=== PATIENT | female | born 1950 | race Caucasian/White ===

== ENCOUNTER 2017-07-09 13:31 | Observation (INO) | payer OTHER ==
[~2017-07-09] VITALS: Ht 149.9 cm; Wt 66.0 kg
[2017-07-09] VITALS (9 sets, daily range): BP systolic 132–178; BP diastolic 79–96; PULSE 72–100; RESP 18–20; TEMP 97.8–99.2; O2SAT 96–98
[~2017-07-09 13:31] MED LIST: ASPI81TA82 PO; BIOT5000 PO; CRANCAP9; FERR140T PO; PHEN-426 PO; TAB-TAB PO; VITA-13 PO; VITA10002 PO; ZOFR4TAB3 PO
--- NOTE | 2017-07-09 13:37 | PD ---
Physical Exam Date Seen by Provider: Jul 09, 2017 Time Seen by Provider: 13:34 Narrative 67 YOWF C/O IRREG HEAT BEAT. LAST NIGHT ASSOC SWEATING AND CP/BACK PAIN LASTING FOR 6-7 HRS. H/O IRREG RYTHM. NOW FEELING BETTER. SENT BY PRIMARY FOR EVAL. VS REVIEWED PT WAITING FOR BED PLACEMENT. Data Data Last Documented VS Vital Signs Date Time Temp Pulse Resp B/P Pulse Ox O2 Delivery O2 Flow Rate FiO2 07/09/17 13:32 99.2 100 20 171/96 98 Room Air MDM Supervised Visit with ALIZE: No Condition: Stable Jose Guadalupe Beckett Jul 09, 2017 13:37
[2017-07-09] MEDS ORDERED: SODIUM CHLORIDE 0.9% FLUSH 10 ML FLUSH IVF PRN (13:45)
[2017-07-09 14:13] LABS: AUTOMATED NEUTROPHIL # 5.4 TH/MM3 (1.8-7.7); BASOPHIL # 0.1 TH/MM3 (0-0.2); BASOPHIL % 1.4 % (0.0-2.0); EOSINOPHIL # 0.2 TH/MM3 (0-0.4); EOSINOPHIL % 1.8 % (0.0-4.0); HEMATOCRIT 41.1 % (35.0-46.0); HEMO FLAGS DIFF FINAL; LYMPH % 30.5 % (9.0-44.0); LYMPHOCYTE # 2.8 TH/MM3 (1.0-4.8); MEAN CELL VOLUME 83.4 FL (80.0-100.0); MEAN CORPUSCULAR HEMOGLOBIN 26.8 PG (27.0-34.0); MEAN CORPUSCULAR HGB CONC 32.1 % (32.0-36.0); MONO % 7.8 % (0.0-8.0); NEUT % 58.5 % (16.0-70.0); PLATELET COUNT 375 TH/MM3 (150-450); RED BLOOD COUNT 4.92 MIL/MM3 (4.00-5.30); WHITE BLOOD COUNT 9.2 TH/MM3 (4.0-11.0)
[2017-07-09 14:23] LABS: APTT (PATIENT) 27.3 SEC (24.3-30.1); INTERNATIONAL NORMALIZED RATIO 0.9 RATIO; PROTHROMBIN TIME - PATIENT 10.4 SEC (9.8-11.6)
[2017-07-09] MEDS ORDERED: VITA100064 PO (14:32)
[2017-07-09] MEDS ORDERED: ASPI81CH CHEW (14:32)
[2017-07-09] MEDS ORDERED: VITA10002 PO (14:32)
[2017-07-09] MEDS ORDERED: PHEN0.4T PO (14:32)
[2017-07-09] MEDS ORDERED: MULT-65 PO (14:32)
[2017-07-09] MEDS ORDERED: FERR325T8 PO (14:32)
[2017-07-09] MEDS ORDERED: BIOTCAP PO (14:32)
[2017-07-09] MEDS ORDERED: CRANCAP2 PO (14:32)
[2017-07-09 14:34] LABS: ANION GAP 9 MEQ/L (5-15); BICARBONATE 26.9 MEQ/L (21.0-32.0); BLOOD UREA NITROGEN 16 MG/DL (7-18); CHLORIDE 103 MEQ/L (98-107); GLOMERULAR FILTRATION RATE 68 ML/MIN (>89); MAGNESIUM 2.4 MG/DL (1.5-2.5); POTASSIUM 3.9 MEQ/L (3.5-5.1); SODIUM (NA) 139 MEQ/L (136-145)
[2017-07-09 14:36] LABS: CREATINE KINASE 167 U/L (26-192)
[2017-07-09 14:48] LABS: CKMB 3.3 NG/ML (0.5-3.6)
--- NOTE | 2017-07-09 15:03 | RADRPT ---
EXAM DATE/TIME: 07/09/2017 14:15 [facility] COMPARISON: CT ABDOMEN W CONTRAST, July 05, 2016, 14:46. INDICATIONS : Chest pain since last night. MEDICAL HISTORY : Renal calculi. Cardiovascular disease SURGICAL HISTORY : section. ENCOUNTER: Initial ACUITY: 2 days PAIN SCORE: 6/10 LOCATION: Bilateral chest FINDINGS: PA and lateral views of the chest demonstrate the lungs to be symmetrically aerated without evidence of mass, infiltrate or effusion. The cardiomediastinal contours are unremarkable. Large hiatal daija ia is noted. Osseous structures are intact. CONCLUSION: No acute disease. Alan Valentine MD FACR on July 09, 2017 at 14:58 Board Certified Radiologist. This report was verified electronically.
--- NOTE | 2017-07-09 15:03 | PD ---
HPI Chief Complaint: Cardiac Complaint Time Seen by Provider: 14:52 Travel History International Travel<30 days: No Contact w/Intl Traveler<30days: No Traveled to known affect area: No History of Present Illness HPI This is a 67-year-old female who presents with complaints of chest pain and diaphoresis last night. The patient states that she has had episodes where the top of her heart in the bottom of her heart are not in sink. She states usually she is able to take an aspirin and this emerged everything back to normal rhythm. She states that she's had a Holter monitor for 30 days and never shows any arrhythmia. She denies any chest pressure or pain now. She states that at 7:00 she felt her heart convert. She states that this was much worse in any previous episodes she's had. She states she had a normal heart catheter 13 years ago[address] 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 PFSH Past Medical History Hx Anticoagulant Therapy: Yes Cardiovascular Problems: Yes Diminished Hearing: No Kidney Stones: Yes Tetanus Vaccination: > 5 Years Influenza Vaccination: Yes ?: Not Menopausal: Yes Past Surgical History Section: Yes Social History Alcohol Use: No Tobacco Use: No Substance Use: No Allergies-Medications (Allergen,Severity, Reaction): Coded Allergies: Sulfa (Sulfonamide Antibiotics) (Unverified Allergy, Severe, Hives, ) tetanus immune globulin (Verified Allergy, Severe, Shortness of Breath, ) Reported Meds & Prescriptions Reported Meds & Active Scripts Active Reported Multi-Vitamin Daily (Multiple Vitamin) 1 Tab Tab 1 Tab PO DAILY Ferrous Sulfate 325 Mg (65 Mg Iron) Tablet 140 Mg PO BIDPC Vitamin B-12 (Cyanocobalamin) 1,000 Mcg Tab 1,000 Mcg PO DAILY Cranberry Urinary Comfort (Vitamins C & E) 1 Cap 1 Cap PO DAILY Vitamin D3 (Cholecalciferol) 1,000 Unit Tab 1,000 Units PO DAILY Biotin 5 Mg Cap 5 Mg PO Aspirin 81 Mg Chew 81 Mg CHEW DAILY Review of Systems Except as stated in HPI: all other systems reviewed are Neg Eyes: No: Blurred Vision, Photophobia HENT: No: Headaches, Lightheadedness Cardiovascular: Positive: Chest Pain or Discomfort, No: Palpitations Respiratory: Positive: Shortness of Breath (earlier), No: Cough Gastrointestinal: No: Nausea, Vomiting, Abdominal Pain Genitourinary: No: Frequency, Dysuria Neurologic: No: Weakness, Dizziness, Headache Physical Exam Narrative GENERAL: Well-nourished, well-developed patient, in no acute respiratory distress. SKIN: Focused skin assessment warm/dry. HEAD: Normocephalic/atraumatic. EYES: No scleral icterus. No injection or drainage. NECK: Supple, trachea midline. No JVD or lymphadenopathy. CARDIOVASCULAR: Regular rate and rhythm without murmurs, gallops, or rubs. RESPIRATORY: Breath sounds equal bilaterally. No accessory muscle use. GASTROINTESTINAL: Abdomen soft, non-tender, nondistended. MUSCULOSKELETAL: No cyanosis, or edema. NEUROLOGICAL: Awake and alert. Cranial nerves II through XII intact. Motor grossly within normal limits. Five out of 5 muscle strength in all muscle groups. Normal speech. Data Data Last Documented VS Vital Signs Date Time Temp Pulse Resp B/P Pulse Ox O2 Delivery O2 Flow Rate FiO2 07/09/17 14:27 90 20 178/91 97 Room Air 07/09/17 13:32 99.2 Orders Electrocardiogram (07/09/17 13:38) Basic Metabolic Panel (Bmp) (07/09/17 13:38) Ckmb (Isoenzyme) Profile (07/09/17 13:38) Complete Blood Count With Diff (07/09/17 13:38) Magnesium (Mg) (07/09/17 13:38) Prothrombin Time / Inr (Pt) (07/09/17 13:38) Act Partial Throm Time (Ptt) (07/09/17 13:38) Troponin I (07/09/17 13:38) Ecg Monitoring (07/09/17 13:38) Iv Access Insert/Monitor (07/09/17 13:38) Oximetry (07/09/17 13:38) Oxygen Administration (07/09/17 13:38) Sodium Chloride 0.9% Flush (Ns Flush) (07/09/17 13:45) Chest, Pa & Lat (07/09/17 13:38) CKMB (07/09/17 13:58) CKMB% (07/09/17 13:58) Admit Order (Ed Use Only) (07/09/17 15:26) Labs Laboratory Tests Test 07/09/17 13:58 White Blood Count 9.2 TH/MM3 Red Blood Count 4.92 MIL/MM3 Hemoglobin 13.2 GM/DL Hematocrit 41.1 % Mean Corpuscular Volume 83.4 FL Mean Corpuscular Hemoglobin 26.8 PG Mean Corpuscular Hemoglobin 32.1 % Concent Red Cell Distribution Width 17.0 % Platelet Count 375 TH/MM3 Mean Platelet Volume 7.8 FL Neutrophils (%) (Auto) 58.5 % Lymphocytes (%) (Auto) 30.5 % Monocytes (%) (Auto) 7.8 % Eosinophils (%) (Auto) 1.8 % Basophils (%) (Auto) 1.4 % Neutrophils # (Auto) 5.4 TH/MM3 Lymphocytes # (Auto) 2.8 TH/MM3 Monocytes # (Auto) 0.7 TH/MM3 Eosinophils # (Auto) 0.2 TH/MM3 Basophils # (Auto) 0.1 TH/MM3 CBC Comment DIFF FINAL Differential Comment Prothrombin Time 10.4 SEC Prothromb Time International 0.9 RATIO Ratio Activated Partial 27.3 SEC Thromboplast Time Sodium Level 139 MEQ/L Potassium Level 3.9 MEQ/L Chloride Level 103 MEQ/L Carbon Dioxide Level 26.9 MEQ/L Anion Gap 9 MEQ/L Blood Urea Nitrogen 16 MG/DL Creatinine 0.83 MG/DL Estimat Glomerular Filtration 68 ML/MIN Rate Random Glucose 89 MG/DL Calcium Level 9.0 MG/DL Magnesium Level 2.4 MG/DL Total Creatine Kinase 167 U/L Creatine Kinase MB 3.3 NG/ML Troponin I LESS THAN 0.02 NG/ML MDM Medical Decision Making Medical Screen Exam Complete: Yes Emergency Medical Condition: Yes Differential Diagnosis ACS versus paroxysmal A. fib versus palpitations versus metabolic derangement Narrative Course This is a 67-year-old female who presents with complaints of chest pain yesterday. The patient states she had chest pain, diaphoresis and palpitations. She states she's had this in the past. She states that normally she can chew aspirin or burp and it goes away. She reports this one was more severe with the severe diaphoresis. There are no acute changes on EKG. Cardiac enzymes are within normal limits. Given her history, patient will be admitted to the chest pain center for rule out protocol. She is amenable to this plan. Case was discussed with HEAVENLY Harris working in the chest pain center. Diagnosis Primary Impression: Chest pain Admitting Information Admitting Physician Requests: Rangel Bragg C. MD Jul 09, 2017 15:03
[2017-07-09] MEDS ORDERED: ACETAMINOPHEN 500 MG CPLT PO PRN (16:15)
[2017-07-09] MEDS ORDERED: ONDANSETRON HCL 4 MG/2 ML VIAL IV PRN (16:15)
[2017-07-09] MEDS ORDERED: ACETAMINOPHEN/HYDROcodone 325 MG/7.5 MG TAB PO PRN (16:15)
[2017-07-09] MEDS ORDERED: ALPRAZolam 0.25 MG TAB PO PRN (16:15)
[2017-07-09] MEDS ORDERED: SODIUM CHLORIDE 0.9% FLUSH 5 ML FLUSH IVF PRN (16:15)
--- NOTE | 2017-07-09 16:58 | HHI.HP ---
[facility] Primary Care Physician Ant Cisse MD Chief Complaint CHEST PAIN History of Present Illness She states that for the last 35 years she has had intermittent events that she describes as the top chamber of her heart and the bottom chamber of her heart beating irregular. It also will fill rapid. She states that she will usually either bare down her cough really hard and will convert. She's had evaluations for this in the past. She states that a couple years ago she had a 30 day Holter monitor which did not reveal any arrhythmias. She had an abnormal stress test about 13 years ago that led to a cardiac catheterization revealing 10-20% disease of the LAD but otherwise normal coronaries. She has had other stress tests since then that had been normal. A couple evenings ago a same episode occurred around 12:30. She states they usually wake her up. However this time she had a pressure in her chest with it and she was not able to convert the irregularity. It lasted for 6 hours. She took an aspirin and it eventually went away. She tried to get an appointment with her surgeon chief however the office stated she needed a referral. She called her primary care physician who told her to go to the ED. She has not had recurrent chest discomfort or palpitations. Denies recent illness. Denies fevers or chills. Review of Systems General: Patient denies fevers, chills recent, and recent travel HEENT: Patient denies headache, sore throat, difficulty swallowing. Cardiovascular: Has the chest discomfort as mentioned above. She had a sensation of her heart beating rapid and irregular and states that has been intermittent for 35 years. The difference were the chest pressure and that she could not convert the palpitation. No syncope. She was diaphoretic. Respiratory: Denies shortness of breath or inspirational chest discomfort. Denies coughing wheezing or hemoptysis. GI: Patient denies nausea, vomiting, diarrhea, abdominal pain, bloody stools. Musculoskeletal: Patient denies joint pain or edema. Denies calf pain or edema. Neurovascular: Patient denies numbness, tingling, weakness in extremities. Denies headache. Endocrine: Denies polyuria and polydipsia. Hematologic: Denies easy bruising. Skin: Denies rash or itching. Past Family Social History Allergies: Coded Allergies: Sulfa (Sulfonamide Antibiotics) (Unverified Allergy, Severe, Hives, ) tetanus immune globulin (Verified Allergy, Severe, Shortness of Breath, ) Past Medical History Denies hypertension, hyperlipidemia, diabetes, and CAD. Past Surgical History Cardiac catheterization without intervention. Tonsillectomy, rhinoplasty, C- section 2, and D&C. Reported Medications Reported Meds & Active Scripts Active Reported Multi-Vitamin Daily (Multiple Vitamin) 1 Tab Tab 1 Tab PO DAILY Ferrous Sulfate 325 Mg (65 Mg Iron) Tablet 140 Mg PO BIDPC Vitamin B-12 (Cyanocobalamin) 1,000 Mcg Tab 1,000 Mcg PO DAILY Cranberry Urinary Comfort (Vitamins C & E) 1 Cap 1 Cap PO DAILY Vitamin D3 (Cholecalciferol) 1,000 Unit Tab 1,000 Units PO DAILY Biotin 5 Mg Cap 5 Mg PO Aspirin 81 Mg Chew 81 Mg CHEW DAILY Active Ordered Medications Current Medications Medications (Trade) Dose Ordered Sig/Toribio Route Start Time Stop Time Status Last Admin (NS Flush) 2 ml UNSCH PRN IVF 07/09/17 16:15 (NS Flush) 2 ml BID IVF 07/09/17 21:00 (Tylenol) 500 mg Q4H PRN PO 07/09/17 16:15 ([place] 7.5-325 Mg) 1 tab Q4H PRN PO 07/09/17 16:15 (Zofran Inj) 4 mg Q6H PRN IV 07/09/17 16:15 (Xanax) 0.25 mg Q8H PRN PO 07/09/17 16:15 Family History Denies family history of CAD. Social History Patient essentially has been a nonsmoker. She smoked briefly in college. Has occasional beer. Denies illicit drugs. Physical Exam Vital Signs Vital Signs Date Time Temp Pulse Resp B/P Pulse Ox O2 Delivery O2 Flow Rate FiO2 07/09/17 14:27 90 20 178/91 97 Room Air 07/09/17 14:23 Room Air 07/09/17 14:23 98 Room Air 07/09/17 13:32 99.2 100 20 171/96 98 Room Air Physical Exam GENERAL: This is a well-nourished, well-developed patient, in no apparent distress. Patient speaks in clear complete sentences. Patient is pleasant. HEENT: Head is atraumatic and normocephalic. Neck is supple without lymphadenopathy and trachea is midline. No JVD or carotid bruits. CARDIOVASCULAR: Regular rate and rhythm without murmurs, gallops, or rubs. RESPIRATORY: Clear to auscultation. Breath sounds equal bilaterally. No wheezes , rales, or rhonchi. Chest wall is nontender. No use of accessory muscles. GASTROINTESTINAL: Abdomen is nontender, nondistended. Abdomen soft. No obvious pulsatile mass or bruit. No CVA tenderness. Strong femoral pulses bilaterally. Normal bowel sounds in all quadrants. MUSCULOSKELETAL: Patient is moving upper and lower extremities freely. No calf tenderness or edema, no Homans sign. Strong pulses in upper and lower extremities. NEUROLOGICAL: Patient is alert and oriented. Cranial nerves 2-12 are grossly intact. No focal deficits and speech is clear. SKIN: No rash and turgor is normal. Laboratory Laboratory Tests Test 07/09/17 13:58 White Blood Count 9.2 Red Blood Count 4.92 Hemoglobin 13.2 Hematocrit 41.1 Mean Corpuscular Volume 83.4 Mean Corpuscular Hemoglobin 26.8 Mean Corpuscular Hemoglobin 32.1 Concent Red Cell Distribution Width 17.0 Platelet Count 375 Mean Platelet Volume 7.8 Neutrophils (%) (Auto) 58.5 Lymphocytes (%) (Auto) 30.5 Monocytes (%) (Auto) 7.8 Eosinophils (%) (Auto) 1.8 Basophils (%) (Auto) 1.4 Neutrophils # (Auto) 5.4 Lymphocytes # (Auto) 2.8 Monocytes # (Auto) 0.7 Eosinophils # (Auto) 0.2 Basophils # (Auto) 0.1 CBC Comment DIFF FINAL Differential Comment Prothrombin Time 10.4 Prothromb Time International 0.9 Ratio Activated Partial 27.3 Thromboplast Time Sodium Level 139 Potassium Level 3.9 Chloride Level 103 Carbon Dioxide Level 26.9 Anion Gap 9 Blood Urea Nitrogen 16 Creatinine 0.83 Estimat Glomerular Filtration 68 Rate Random Glucose 89 Calcium Level 9.0 Magnesium Level 2.4 Total Creatine Kinase 167 Creatine Kinase MB 3.3 Troponin I LESS THAN 0.02 Result Diagram: 07/09/17 1358 07/09/17 1358 Imaging Last 48 hours Impressions Chest X-Ray 07/09/17 1338 Signed Impressions: Service Date/Time: Sunday, July 09, 2017 14:15 - CONCLUSION: No acute disease. Alan Valentine MD FACR Course She'll EKG has sinus rhythm without significant ST segment depressions or elevations. Assessment and Plan Assessment and Plan * Chest pain: Patient was having chest discomfort and palpitations. She will continue to have serial cardiac enzymes and EKGs for ruling out purposes. She was seen by Dr. Ghanshyam Frank of cardiology and will likely undergo a Lexiscan in the morning and be discharged to stress test was nonischemic. I'm also awaiting to speak with Dr. Lima to see if he is agreeable to this plan. She will need to follow-up with Dr. Lima if the stress test was nonischemic. Patient is stable at this time. She is agreeable to this plan. Mao Conte Jul 09, 2017 16:58
[2017-07-09] MEDS ORDERED: cloNIDine HCL 0.1 MG TAB PO PRN (18:00)
[2017-07-09 19:37] LABS: CREATINE KINASE 153 U/L (26-192)
[2017-07-09 19:49] LABS: CKMB 3.1 NG/ML (0.5-3.6)
[2017-07-09] MEDS ORDERED: SODIUM CHLORIDE 0.9% FLUSH 5 ML FLUSH IVF SCH (21:00)
[2017-07-09 21:33] LABS: CREATINE KINASE 156 U/L (26-192)
[2017-07-10] VITALS (7 sets, daily range): BP systolic 111–132; BP diastolic 61–77; PULSE 57–87; RESP 17–18; TEMP 98.1–98.5; O2SAT 95–99
[2017-07-10] MEDS ORDERED: REGADENOSON INJ 0.4 MG/5 ML SYR ONE (10:45)
--- NOTE | 2017-07-10 12:19 | RADRPT ---
EXAM DATE/TIME: 07/10/2017 09:52 [facility] COMPARISON: No previous studies available for comparison. INDICATIONS : Mid chest pain for one day. Angina. DOSE: 27.2 mCi Tc99m Myoview at stress. 8.7 mCi Tc99m Myoview at rest. 0.4 mg Lexiscan STRESS SYMPTOMS: Stomach cramps and flush feeling. EJECTION FRACTION: > 70% MEDICAL HISTORY : None SURGICAL HISTORY : Tonsillectomy. section. ENCOUNTER: Initial ACUITY: 1 day PAIN SCALE: 7/10 LOCATION: Midsternal chest TECHNIQUE: The patient underwent pharmacologic stress with infusion of prescribed dose. Continuous ECG tracing was monitored during stress. Gated SPECT imaging was performed after stress and conventional SPECT i maging was performed at rest. The examination was performed on a SPECT/CT scanner, both attenuation and non-corrected datasets were reviewed. FINDINGS: Gated cineloop images demonstrate no focal wall motion abnormality. The left ventricular injection f raction is calculated at greater than 70%. The cardiac SPECT stress and rest images demonstrate no fixed or reversible defects to suggest infarc t or ischemia. CONCLUSION: 1. No evidence of infarct, ischemia or focal wall motion abnormality. Left ventricular ejection frac tion is calculated at greater than 70%. RISK CATEGORY: Low risk ( less than 1% annual mortality rate). Horacio Cruz MD on July 10, 2017 at 12:01 Board Certified Radiologist. This report was verified electronically.
--- NOTE | 2017-07-10 12:37 | HHI.DCPOC ---
Discharge Care Plan Diagnosis: (1) Chest pain (2) Palpitations Goals to Promote Your Health * To prevent worsening of your condition and complications * To maintain your health at the optimal level Directions to Meet Your Goals Take your medications as prescribed Follow your dietary instruction Follow activity as directed Keep your appointments as scheduled Take your immunizations and boosters as scheduled If your symptoms worsen call your PCP, if no PCP go to Urgent Care Center or Emergency Room Smoking is Dangerous to Your Health. Avoid second hand smoke Call the 24-hour hour crisis hotline for domestic abuse at Mao Conte Jul 10, 2017 12:37
--- NOTE | 2017-07-10 14:51 | TR ---
Date Performed: 07/10/2017 Time Performed: 10:45:29 DOCTOR: Emiliano Qureshi DRUG LIST: CLINICAL HISTORY: REASON FOR TEST: Angina REASON FOR ENDING: OBSERVATION: CONCLUSION: Lexiscan stress test was performed under standard four minute protocol. Radionucl[place] e was injected one minute prior to ending the test. No electrocardiographic abormalities were present to suggest ischemia. Nuclear imaging and interpretation are pending. COMMENTS:
--- NOTE | 2017-07-10 15:11 | EKG ---
Date Performed: 07/09/2017 Time Performed: 20:32:22 PTAGE: 67 years EKG: Sinus rhythm BORDERLINE LEFT AXIS DEVIATION BORDERLINE ECG PREVIOUS TRACING : 07/09/2017 18.48 \spt DOCTOR: Emiliano Qureshi Interpretating Date/Time 07/10/2017 15:10:04
--- NOTE | 2017-07-10 15:13 | EKG ---
Date Performed: 07/09/2017 Time Performed: 18:48:07 PTAGE: 67 years EKG: SINUS BRADYCARDIA BORDERLINE ECG PREVIOUS TRACING : 07/09/2017 13.48 Since previous tracing, no significant change noted DOCTOR: Emiliano Qureshi Interpretating Date/Time 07/10/2017 15:12:08
--- NOTE | 2017-07-10 15:17 | EKG ---
Date Performed: 07/09/2017 Time Performed: 13:48:07 PTAGE: 67 years EKG: Sinus rhythm MARKED LEFT AXIS DEVIATION ABNORMAL ECG PREVIOUS TRACING : 05/02/2004 05.57 Since previous tracing, no significant change noted DOCTOR: Emiliano Qureshi Interpretating Date/Time 07/10/2017 15:16:10
== END 2017-07-10 14:34 | disposition home or self-care (01) ==
LOC: NEPC 13:31 → NEDA 15:28 → NEPGCP 18:18
PROVIDERS: ADMIT Internal Medicine Cardiovascular Disease; ATTEND Internal Medicine Cardiovascular Disease
DX: R07.89 Other chest pain (principal); R00.2 Palpitations; R94.31 Abnormal electrocardiogram [ECG] [EKG]
CPT/HCPCS: 71020; 78452; 80048; 82550; 82552; 83735; 84443; 84484; 85025; 85610; 85730; 93005; 93017; 99285; A9502; G0378; J2785